=== PATIENT | male | born 1975 | race Caucasian/White ===

== ENCOUNTER → 2016-10-22 | Outpatient (CLI) | payer OTHER ==
[2015-03-26 18:13] VITALS: BP 143/92
--- NOTE | 2016-10-22 15:23 | KCIC ---
MR LUMBAR SPINE HISTORY: Clinical history back pain COMPARISON: None Technique: Sagittal T2, sagittal STIR, and sagittal T1-weighted images were obtained. Additional axial T1 and T2 weighted imaging was also performed. FINDINGS: There is advanced disc height loss of L2 on L3 with reactive endplate edema noted at this level. There is a broad-based disc protrusion also noted which results in at least mild to moderate right foraminal stenosis and mild central spinal stenosis. Remaining disc spaces are relatively well-maintained. Visualized intra-abdominal contents are within normal limits. IMPRESSION: Advanced degenerative disc disease at L2-L3 with reactive endplate edema and a broad-based disc protrusion causing at least mild to moderate right foraminal stenosis and mild central spinal stenosis. Electronically signed by: Ander Larson MD (10/22/2016 3:19 PM)
== END | disposition home or self-care (01) ==
LOC: KCIC MRI 14:23
PROVIDERS: ATTEND Physical Medicine & Rehabilitation
DX: M51.36 Other intervertebral disc degeneration, lumbar region (principal); M48.06 Spinal stenosis, lumbar region; M47.896 Other spondylosis, lumbar region
CPT/HCPCS: 72148